=== PATIENT | male | born 1960 | race Caucasian/White ===

== ENCOUNTER 2024-03-12 21:54 | Emergency (ER) | payer OTHER, SELFPAY ==
[2024-03-12 22:02] VITALS: BP 148/84; PULSE 93; RESP 18; TEMP 37.3; O2SAT 96
[2024-03-12 22:54] LABS: Influenza A QL RT-PCR Negative (Negative); Influenza B QL RT-PCR Negative (Negative); SARS-CoV-2 RNA PCR Negative (Negative)
[2024-03-12 23:00] LABS: Basophils Percent Auto 0.2 % (0.2-1.2); Eosinophils Percent Auto 0.2 % (0-4.4); Hematocrit 41.7 % (42.0-52.0); Hemoglobin 13.8 g/dL (14.0-18.0); Immature Granulocyte Absolute 0.13 K/mm3 (0.00-0.031); Immature Granulocyte Percent A 1.1 % (0-0.5); Lymphocytes Absolute Auto 2.13 K/mm3 (0.9-3.2); Lymphocytes Percent Auto 17.3 % (18.3-44.2); Mean Corpuscular HGB Conc 33.1 g/dl (32-36); Mean Corpuscular Volume 81.6 fl (80-100); Mean Platelet Volume 9.8 fl (7.4-10.4); Monocytes Absolute Auto 1.1 K/mm3 (0.1-0.6); Monocytes Percent Auto 8.7 % (2.6-8.5); Neutrophils Absolute Auto 8.9 K/mm3 (1.3-6.7); Neutrophils Percent Auto 72.5 % (45.5-73.1); Platelet Count Result 310 k/mm3 (150-375); Red Blood Count 5.11 M/mm3 (4.6-6.20); Red Cell Distribution Width 15.5 % (11.5-14.5); White Blood Count 12.3 K/mm3 (4.5-10.0)
[2024-03-12 23:10] LABS: Alanine Aminotransferase 66 U/L (6-50); Albumin Level 3.6 g/dL (3.5-5.1); Alkaline Phosphatase 100 U/L (38-126); Anion Gap 9 mmol/L (4-12); Aspartate Amino Transferase 83 U/L (17-59); Bilirubin,Total 0.6 mg/dL (0.2-1.3); Blood Urea Nitrogen 16 mg/dL (9-20); Calcium 8.6 mg/dL (8.4-10.2); Carbon Dioxide 28 mmol/L (22-30); Chloride 100 mmol/L (98-107); Estimated CRCL calculation 84 ml/min; Estimated Glomerular Filt Rate > 60; Glucose 112 mg/dL (65-110); Lipase 45 U/L (23-300); Potassium 3.4 mmol/L (3.4-5.0); Sodium 137 mmol/L (137-145)
--- NOTE | 2024-03-12 23:55 | ED.GENADULT ---
HPI - General Adult General Chief complaint: Unspecified Stated complaint: chills, abdominal discomfort Time Seen by Provider: 03/12/24 23:37 History of Present Illness HPI narrative: Patient is a 63-year-old male who presents ER with nonspecific abdominal discomfort. Reports it feels full. He is eating and drinking normally. No pain with eating or drinking. No fevers but does have some chills. He has been without diarrhea. Denies acid reflux. He has had a partial colectomy due to diverticulitis in the past. Patient recently moved back to the area from [place] after being gone for 9 years. No urinary frequency urgency or dysuria. Related Data Allergies Allergy/AdvReac Type Severity Reaction Status Date / Time No Known Allergies Allergy Verified 03/12/24 21:57 Review of Systems Review of Systems: All systems reviewed & are unremarkable except as noted in HPI and below Constitutional: Constitutional: Reports no additional constitutional complaints ENT: Reports system reviewed and no additional complaints, except as documented Cardiovascular: Cardiovascular: Reports no additional cardiovascular complaints Respiratory: Respiratory: Reports no additional respiratory complaints Gastrointestinal: Gastrointestinal: Reports abdominal pain, Denies constipation, Denies diarrhea, Denies nausea and Denies vomiting Genitourinary: Genitourinary: Reports no additional male genitourinary complaints [facility] Surgical History Surgical History (Updated 03/12/24 @ 23:57 by Darius Allen MD) History of partial colectomy Exam Narrative: GENERAL: Well-appearing, morbidly obese, and in no acute distress. HEAD: Normocephalic, atraumatic. ENT: Mucous membranes moist. NECK: Supple. CHEST: Clear to auscultation. No respiratory distress. HEART: Regular rate and rhythm. Normal peripheral pulses. ABDOMEN: Soft, nontender, nondistended. EXTREMITIES: Normal range of motion. No edema. SKIN: Warm, dry, no rash. NEURO: Alert and oriented x3. PSYCH: Normal mood and affect. Course Course Emergency Course: Unremarkable exam and evaluation. Mild nonspecific elevation in AST and ALT. Recommend follow-up with the PCP for repeat testing. Abdominal exam benign. Not felt to have acute cholecystitis. Also do not feel patient has any history consistent with bowel obstruction. Suspect nonspecific viral syndrome. Vital Signs Vital signs: Vital Signs Temperature 99.2 F 03/12/24 22:02 Pulse Rate 93 03/12/24 22:02 Respiratory Rate 18 03/12/24 22:02 Blood Pressure 148/84 H 03/12/24 22:02 Pulse Oximetry 96 03/12/24 22:02 Oxygen Delivery Room Air 03/12/24 22:02 Temperature 99.2 F 03/12/24 22:02 Pulse Rate 93 03/12/24 22:02 Respiratory Rate 16 03/13/24 00:16 Blood Pressure 148/84 H 03/12/24 22:02 Pulse Oximetry 96 03/12/24 22:02 Oxygen Delivery Room Air 03/12/24 22:02 Medical Decision Making Vital Signs Vital Signs: Vital Signs Temperature 99.2 F 03/12/24 22:02 Pulse Rate 93 03/12/24 22:02 Respiratory Rate 18 03/12/24 22:02 Blood Pressure 148/84 H 03/12/24 22:02 Pulse Oximetry 96 03/12/24 22:02 Oxygen Delivery Room Air 03/12/24 22:02 Temperature 99.2 F 03/12/24 22:02 Pulse Rate 93 03/12/24 22:02 Respiratory Rate 16 03/13/24 00:16 Blood Pressure 148/84 H 03/12/24 22:02 Pulse Oximetry 96 03/12/24 22:02 Oxygen Delivery Room Air 03/12/24 22:02 Lab Data 03/12/24 22:55 03/12/24 22:55 Labs: Lab Results 03/12/24 03/12/24 03/13/24 Range/Units 22:08 22:55 00:01 WBC 12.3 H (4.5-10.0) K/mm3 RBC 5.11 (4.6-6.20) M/mm3 Hgb 13.8 L (14.0-18.0) g/dL Hct 41.7 L (42.0-52.0) % MCV 81.6 (80-100) fl MCH 27.0 (26-34) pg MCHC 33.1 (32-36) g/dl RDW 15.5 H (11.5-14.5) % Plt Count 310 (150-375) k/mm3 MPV 9.8 (7.4-10.4) fl Immature Gran % (Auto) 1.1 H (0-0.5) % N
[2024-03-13 00:12] LABS: Appearance Urine Clear (Clear); Bacteria Urine None Seen /hpf; Bilirubin Urine Negative (Negative); Blood Urine Negative (Negative); Color Urine Yellow (Yellow); Glucose Urine UA Negative (Negative); Ketones Urine Negative (Negative); Leukocyte Esterase Ur Negative LEU/UL (Negative); Nitrate Urine Negative (Negative); Non Pathogenic Casts 0-2; Protein Urine Trace mg/dL (Negative); RBC Urine 0-2 /hpf (0-2); Specific Grav Ur 1.014 (1.001-1.035); Squamous Epithelial Cell Urine None Seen /hpf (Few); WBC Urine 0-5 /hpf (0-3)
[2024-03-13 00:16] VITALS: RESP 16
[2024-03-13 00:16] LABS: Add Urine Microscopic? YES
[2024-03-13 00:47] VITALS: BP 186/86; PULSE 86; RESP 16; O2SAT 98
== END 2024-03-13 00:48 | disposition home or self-care (01) ==
PROVIDERS: Emergency Provider Emergency Medicine
DX: B34.9 Viral infection, unspecified (principal); R74.01 Elevation of levels of liver transaminase levels; Z20.822 Contact with and (suspected) exposure to COVID-19; Z90.49 Acquired absence of other specified parts of digestive tract
CPT/HCPCS: 36415; 80053; 81001; 83690; 85025; 87636; 99283